=== PATIENT | male | born 1945 | race African-American/Black ===

== ENCOUNTER 2018-04-08 08:25 | Outpatient (CLI) | payer MEDICARE, MEDICAID, SELFPAY ==
[2018-04-08] VITALS (10 sets, daily range): BP systolic 139–169; BP diastolic 67–78; PULSE 72–87; RESP 16–20; TEMP 36.6–36.8; O2SAT 97–100; BMI 22.6
[2018-04-08 09:16] LABS: Hemoglobin 8.4 g/dL (14.1-18.0)
--- NOTE | 2018-04-08 12:05 | PC.NURSE ---
1201 - BLOOD TRANSFUSION STARTED INFUSING AT 100 ML/HR AT THIS TIME.
--- NOTE | 2018-04-08 12:35 | PC.NURSE ---
1231 - INCREASED RATE TO 150 ML/HR AT THIS TIME.
--- NOTE | 2018-04-08 13:51 | PC.NURSE ---
1301 - INCREASED RATE TO 200 ML/HR AT THIS TIME.
[2018-04-08 15:10] LABS: Hematocrit 27.8 % (42.0-52.0); Hemoglobin 8.8 g/dL (14.1-18.0)
== END 2018-04-08 15:25 ==
LOC: INF 08:38
PROVIDERS: Visit Provider Emergency Medicine
DX: D64.9 Anemia, unspecified (principal)
CPT/HCPCS: 36415; 36430; 85014; 85018; 86850; P9016

== ENCOUNTER → 2018-04-08 14:00 | Outpatient (CLI) | payer MEDICARE, MEDICAID, SELFPAY ==
[2018-04-09 15:30] LABS: Occult Blood,Stool Negative (Negative)
== END ==
PROVIDERS: Visit Provider Nurse Practitioner Family
DX: D64.9 Anemia, unspecified (principal)
CPT/HCPCS: 36415; 36430; 82272; 85014; 85018; 86850; G0328; P9016

== ENCOUNTER → 2018-04-10 21:22 | Outpatient (CLI) | payer MEDICARE, MEDICAID, SELFPAY ==
[2018-04-10 21:51] LABS: Occult Blood,Stool Negative (Negative)
== END ==
PROVIDERS: Visit Provider Emergency Medicine
DX: D63.1 Anemia in chronic kidney disease (principal)
CPT/HCPCS: 82272; G0328

== ENCOUNTER → 2018-04-12 00:43 | Outpatient (CLI) | payer MEDICARE, MEDICAID, SELFPAY ==
[2018-04-12 01:13] LABS: Occult Blood,Stool Negative (Negative)
== END ==
PROVIDERS: Visit Provider Emergency Medicine
DX: D64.9 Anemia, unspecified (principal)
CPT/HCPCS: 82272; G0328